=== PATIENT | female | born 1975 | race Caucasian/White ===

== ENCOUNTER 2018-09-19 16:33 | Emergency (ER) | payer OTHER, MEDICAID, SELFPAY ==
[2018-09-19 16:45] VITALS: BP 139/92; PULSE 96; RESP 16; TEMP 37; O2SAT 97; BMI 42.3
[2018-09-19] MEDS: KETOROLAC 60 MG/2 ML VIAL 30 MG IM (17:21)
--- NOTE | 2018-09-19 17:21 | ED_ITS ---
HPI - Neck Pain/Injury <JAIME Yanes - Last Filed: 09/19/18 21:40> General Chief Complaint: Neck Pain/Injury Stated Complaint: neck pain today Time Seen by Provider: 09/19/18 16:56 Source: patient Mode of arrival: ambulatory Limitations: no limitations History of Present Illness HPI Narrative: 43-year-old female with a history of TMJ and cervical bone spurs, presents emergency department complaining neck pain starting today. States she has had worsening. Pain because she has been grinding her teeth the past few days and she has been anxious, but while driving in the car today she experienced sharp neck pain to lateral sides of neck bilaterally. States pain is constant 7/10 and is worse with movement and palpation, better with heat and rest. Patient denies dizziness, headache, syncope, chest pain, vision changes, shortness of breath, abdominal pain, nausea, vomiting, diarrhea, or swelling in her legs. Patient also denies trauma to the area. MD complaint: neck pain Onset (ago): minute(s) Place: other Severity: moderate Severity scale (1-10): 7 Quality: sharp Duration: constant Relieving factors: heat therapy Exacerbating factors: movement of neck Associated symptoms: none Treatments prior to arrival: none Related Data Previous Rx's Medication Instructions Recorded diazepam [Valium] 5 mg PO BID PRN #10 tab 09/19/18 Review of Systems <JAIME Yanes - Last Filed: 09/19/18 21:40> Review of Systems REVIEW OF SYSTEMS: GENERAL: Denies fever or chills. HENT: No head trauma, hearing loss or sore throat. EYES: No loss of vision, double vision, eye pain, or irritation. CARDIOVASCULAR: No chest pain or syncope. RESPIRATORY: No shortness of breath or cough. GASTROINTESTINAL: No nausea, vomiting, diarrhea, or constipation. GENITOURINARY: No flank pain or dysuria. MUSCULOSKELETAL: See HPI, complaints of neck pain INTEGUMENTARY: No rash, lesions, or pruritus. NEURO: No numbness, tingling, memory loss, or confusion. PSYCH: No behavior or mood changes. PFSH <JAIME Yanes - Last Filed: 09/19/18 21:40> Medical History TMJ arthralgia (Acute) Social History Smoking Status: Current every day smoker Social History Smoking Status: Current every day smoker Exam <JAIME Yanes - Last Filed: 09/19/18 21:40> Initial Vital Signs Initial Vital Signs: Vital Signs Temperature 98.6 F 09/19/18 16:45 Pulse Rate 96 H 09/19/18 16:45 Respiratory Rate 16 09/19/18 16:45 Blood Pressure 139/92 H 09/19/18 16:45 Pulse Oximetry 97 09/19/18 16:45 PHYSICAL EXAMINATION: GENERAL: Well groomed, alert, and cooperative Answers questions promptly and appropriately. Patient tearful during visit. Vital signs noted. HENT: Normocephalic, atraumatic. EYES: PERRLA, EOMIs, conjunctiva pink, sclera white, no periorbital swelling. NECK: Limited range or motion due to pain, range of motion increased after administration of medications. Tenderness to palpation of the sternocleidomastoid muscles bilaterally, pain was also elicited with cortisone rotation of head. No bruising or erythema noted. No spinal tenderness along neck. No pain on the base of the skull with palpation. No nuchal rigidity. CHEST: Normal to inspection and without deformities. CARDIOVASCULAR: S1 and S2 sounds normal. Regular rate and rhythm, no murmurs, clicks, or bruits. RESPIRATORY: Normal respiratory rate, trachea midline, airway patent. No stridor, nasal flaring or accessory muscle use. Lungs are clear in all ross without wheeze, rhonchi, or crackles. MUSCULOSKELETAL: Normal gait and coordination. Equal tone and mass bilaterally. No spinal tenderness or deformities. EXTREMITIES: CMS intact. Moves all extremities. SKIN: Warm, dry, soft, appropriate color for ethnicity. No lesions, rashes, or wounds. NEURO: Alert and Oriented X 3. Good coordination. No ataxia, or sensory deficits, or cognitive issues. PSYCH: Appropriate affect and mood. <Hilario Zacarias DO - Last Filed: 09/20/18 20:17> Initial Vital Signs Initial Vital Signs: Vital Signs Temperature 98.6 F 09/19/18 16:45 Pulse Rate 96 H 09/19/18 16:45 Respiratory Rate 16 09/19/18 16:45 Blood Pressure 139/92 H 09/19/18 16:45 Pulse Oximetry 97 09/19/18 16:45 Scores <JAIME Yanes - Last Filed: 09/19/18 21:40> Nexus Score for C-Spine Focal Neurologic deficit present: No Midline spinal tenderness present: No Altered level of conciousness present: No Intoxication present: No Distracting Injury Present: No Nexus Criteria for C-spine: 0 Course <JAIME Yanes - Last Filed: 09/19/18 21:40> Course Narrative: Patient's pain slightly decreased with administration of Toradol and Valium, however patient stated that her pain is not 100% gone. Discussed with patient that neck spasms may take a while to resolve and I will send her home medications. Encouraged patient to follow up with primary care provider for possible PT and massage therapy, as well as further testing if symptoms persist. Orders Ordered: Discontinued Medications Diazepam (Valium) 5 mg PO NOW ONE Stop: 09/19/18 17:17 Last Admin: 09/19/18 17:22 Dose: 5 mg Ketorolac Tromethamine (Toradol) 30 mg IM NOW ONE Stop: 09/19/18 17:17 Last Admin: 09/19/18 17:21 Dose: 30 mg Consultations Consultation #1: Patient discussed with Dr. Zacarias Vital Signs - 8 hr 09/19/18 16:45 09/19/18 17:49 09/19/18 18:56 Temperature 98.6 F Pulse Rate 96 H 77 88 Respiratory Rate 16 Blood Pressure 139/92 H 122/83 Blood Pressure [Left Arm] 113/82 Pulse Oximetry 97 99 97 <Hilario Zacarias DO - Last Filed: 09/20/18 20:17> Orders Ordered: Discontinued Medications Diazepam (Valium) 5 mg PO NOW ONE Stop: 09/19/18 17:17 Last Admin: 09/19/18 17:22 Dose: 5 mg Ketorolac Tromethamine (Toradol) 30 mg IM NOW ONE Stop: 09/19/18 17:17 Last Admin: 09/19/18 17:21 Dose: 30 mg Vital Signs - 8 hr 09/19/18 16:45 09/19/18 17:49 09/19/18 18:56 Temperature 98.6 F Pulse Rate 96 H 77 88 Respiratory Rate 16 Blood Pressure 139/92 H 122/83 Blood Pressure [Left Arm] 113/82 Pulse Oximetry 97 99 97 MDM - Neck Pain/Injury <Rachel JAIME Gama - Last Filed: 09/19/18 21:40> [facility] Narrative Medical decision making narrative: I suspect patient's symptoms are caused by muscle spasm due to exam and and personal history. Low suspicion of acute eligio nary syndrome due to reproducible pain with palpation and movement, no other symptoms such as dizziness, shortness of breath or chest pressure, and history of TMJ and cervical bone spurs, as well as partial resolution of symptoms with ketorolac and Valium. Low suspicion for meningitis due to lack of fever, headache, vision changes, and history of illness as well as nuchal rigidity. Discharge Plan Departure Patient Disposition: Home Clinical Impression: Muscle spasms of neck, Strain of neck muscle Discharge Date/Time: 09/19/18 18:56 Interventions: ED Discharge Assessment Last Done: 09/19/18 18:56 Instructions: DI for Neck Pain, DI for Muscle Spasm Activity Restrictions/Additional Instructions: Thank you for entrusting me with your care today. As discussed, you're neck pain is most likely due to muscle spasm. You have been prescribed a muscle relaxer. Please follow up with her primary care provider to discuss further testing if needed and or physical therapy. If you develop vision loss or double vision, chest pain, shortness of breath, or facial drooping please return to the emergency department. Prescriptions: New diazepam [Valium] 5 mg tablet 5 mg PO BID PRN (Reason: Neck spasms) Qty: 10 RF: 0 <Hilario Zacarias DO - Last Filed: 09/20/18 20:17> [facility] ED Attending Zee Attestation: I was available for consultation during this patient's emergency department encounter
[2018-09-19] MEDS: diazePAM 5 MG TABLET PO (17:22)
[2018-09-19 17:49] VITALS: BP 113/82; PULSE 77; O2SAT 99
[2018-09-19 18:56] VITALS: BP 122/83; PULSE 88; O2SAT 97
== END 2018-09-19 18:56 | disposition home or self-care (01) ==
PROVIDERS: Emergency Provider Nurse Practitioner
DX: M62.838 Other muscle spasm (principal); S16.1XXA Strain of muscle, fascia and tendon at neck level, initial encounter
CPT/HCPCS: 96372; 99282; 99283; J1885

== ENCOUNTER 2019-12-16 10:50 | Emergency (ER) | payer OTHER, MEDICAID, SELFPAY ==
[2019-12-16 11:00] VITALS: BP 145/92; PULSE 101; RESP 18; TEMP 36.7; O2SAT 98; BMI 38.0
--- NOTE | 2019-12-16 11:32 | PC.NURSE ---
Small abcess L groin, white soft center surrounded by reddened skin. Tender to touch. 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 Pt has taken one aspirin today for pain and has improved pain with warm compresses. Has also attempted using Vicks on site. Pt states she took 2 diflucan this week for a yest infection, also on insulin, jiardiance, effexor and lisinopril for HTN.
[2019-12-16] MEDS: KETOROLAC 60 MG/2 ML VIAL 30 MG IM (11:55)
[2019-12-16] MEDS: hydrOXYzine pamoate 25 MG CAPSULE 50 MG PO (11:55)
--- NOTE | 2019-12-16 12:06 | ED_ITS ---
HPI - Skin/Abscess/Foreign Bdy <ED Felder - Last Filed: 12/16/19 16:02> General Chief complaint: Skin/Abscess/Foreign Body Stated complaint: Needs to have an abscess drained Time Seen by Provider: 12/16/19 11:12 Source: patient and family Mode of arrival: Ambulatory Limitations: no limitations History of Present Illness HPI narrative: The patient is a 44-year-old female nonsmoker with history of type 2 diabetes who presents with her for chief complaint of an abscess on the left side of her groin. She states she noticed it 4 days ago, has been using warm packs and is increasing in size. She states she has a history of abscesses, denies any IV drug use but does state she has a history of diabetes. She does state she has a remote history of nec fasc. She denies any fevers nausea vomiting or diarrhea. She denies any signs of systemic illness such as muscle aches or chills. She does note that her abscess is no longer red, but it was earlier today. Related Data Previous Rx's Medication Instructions Recorded diazepam [Valium] 5 mg PO BID PRN #10 tab 09/19/18 cephalexin 500 mg PO TID #30 cap 12/16/19 sulfamethoxazole-trimethoprim 1 tab PO BID #14 tab 12/16/19 Review of Systems <ED Felder - Last Filed: 12/16/19 16:02> Review of Systems Narrative: GENERAL: Denies chills, fatigue, malaise, fever, sweats. HEENT: Denies sinus pain, ear pain, sore throat, difficulty swallowing, dizziness. RESPIRATORY: Denies dyspnea, cough, wheezing, hemoptysis, sputum. CARDIOVASCULAR: Denies chest pain, palpitations, orthopnea, edema, GASTROINTESTINAL: Denies nausea, vomiting, abdominal pain, diarrhea, constipation, melena. : Denies dysuria, frequency, incontinence, hematuria, urinary retention. MUSCULOSKELETAL: denies weakness, joint pain, or bony pain SKIN: See HPI NEUROLOGIC: Denies weakness, headache, numbness, change in speech, confusion, seizures, incoordination. PSYCHIATRIC: No concerning psychosocial issues. 12 point review of systems is negative except for those stated above Patient History <ED Felder - Last Filed: 12/16/19 16:02> Medical History (Updated 12/16/19 @ 12:44 by AWILDA Felder-SOUMYA) TMJ arthralgia (Acute) Social History Smoking Status: Current every day smoker Smoking Status: Current every day smoker Substance Use Type: does not use Exam <ED Felder - Last Filed: 12/16/19 16:02> Narrative Exam Narrative: GENERAL: This is a well-nourished, well-developed patient, very restless, anxious. HEAD: Atraumatic. Normocephalic. No temporal or scalp tenderness. EYES: Pupils equal round and reactive. Extraocular motions intact. No scleral icterus. No injection or drainage. ENT: Nose without bleeding, purulent drainage or septal hematoma. Wearing a mask. Airway patent. NECK: Trachea midline. No JVD or lymphadenopathy. Supple, nontender, no meningeal signs. CARDIOVASCULAR: Regular rate and RESPIRATORY: Clear to auscultation. Breath sounds equal bilaterally. No wheezes, rales, or rhonchi. No cough. No increased respiratory effort. No accessory muscle use. GASTROINTESTINAL: Abdomen soft, non-tender, nondistended. No hepato- splenomegaly, or palpable masses. No guarding. EXTREMITIES: No clubbing, cyanosis, or edema. No joint tenderness, effusion, or edema noted. Very restless, using all extremities equally, kicking throughout exam. BACK: Nontender without deformity or crepitance. No flank tenderness. NEURO: AOx3. SKIN: 2 cm palpable mass in left side inguinal fold with 2 mm pustule on top. No overlying erythema. Very hard and tender to palpation. Initial Vital Signs Initial Vital Signs: Vital Signs Temperature 98.0 F 12/16/19 11:00 Pulse Rate 101 H 12/16/19 11:00 Respiratory Rate 18 12/16/19 11:00 Blood Pressure 145/92 H 12/16/19 11:00 Pulse Oximetry 98 12/16/19 11:00 <Nnamdi Guerra DO - Last Filed: 12/16/19 17:31> Initial Vital Signs Initial Vital Signs: Vital Signs Temperature 98.0 F 12/16/19 11:00 Pulse Rate 101 H 12/16/19 11:00 Respiratory Rate 18 12/16/19 11:00 Blood Pressure 145/92 H 12/16/19 11:00 Pulse Oximetry 98 12/16/19 11:00 Procedures <ED Felder - Last Filed: 12/16/19 16:02> Abscess I/D I&D #1: Site: abdomen Side (if applicable): left Local Anesthetic: lidocaine 1% and with bicarb Amount of anesthesia used (mL): 4 Technique: needle aspiration Amount of fluid expressed (mL): 2 Irrigation: No Course <ED Felder - Last Filed: 12/16/19 16:02> Orders Ordered: ED Orders 12/16/19 12:40 Wound Culture and Gram Stain Stat Discontinued Medications Hydroxyzine Pamoate (Vistaril) 50 mg PO NOW ONE Stop: 12/16/19 11:50 Last Admin: 12/16/19 11:55 Dose: 50 mg Documented by: LMISQUITTFannie Ketorolac Tromethamine (Toradol) 30 mg IM NOW ONE Stop: 12/16/19 11:41 Last Admin: 12/16/19 11:55 Dose: 30 mg Documented by: LMISQUITTFannie Lidocaine/Sodium Bicarbonate (Buffered Lidocaine 10 Ml Syr) 10 ml INJ NOW ONE Stop: 12/16/19 11:41 Last Admin: 12/16/19 12:41 Dose: 10 ml Documented by: ASTRID Vital Signs Vital signs: Vital Signs - 8 hr 12/16/19 11:00 12/16/19 12:53 Temperature 98.0 F Pulse Rate 101 H 94 H Respiratory Rate 18 16 Blood Pressure 145/92 H 138/67 Pulse Oximetry 98 99 <Nnamdi Guerra DO - Last Filed: 12/16/19 17:31> Orders Ordered: ED Orders 12/16/19 12:40 Wound Culture and Gram Stain Stat Discontinued Medications Hydroxyzine Pamoate (Vistaril) 50 mg PO NOW ONE Stop: 12/16/19 11:50 Last Admin: 12/16/19 11:55 Dose: 50 mg Documented by: LMISQUITTA Ketorolac Tromethamine (Toradol) 30 mg IM NOW ONE Stop: 12/16/19 11:41 Last Admin: 12/16/19 11:55 Dose: 30 mg Documented by: LMISQUITTA Lidocaine/Sodium Bicarbonate (Buffered Lidocaine 10 Ml Syr) 10 ml INJ NOW ONE Stop: 12/16/19 11:41 Last Admin: 12/16/19 12:41 Dose: 10 ml Documented by: ASTRID Vital Signs Vital signs: Vital Signs - 8 hr 12/16/19 11:00 12/16/19 12:53 Temperature 98.0 F Pulse Rate 101 H 94 H Respiratory Rate 18 16 Blood Pressure 145/92 H 138/67 Pulse Oximetry 98 99 MDM - Skin/Abscess/Foreign Bdy <AWILDA Felder-BC - Last Filed: 12/16/19 16:02> Differential Diagnosis Differential diagnosis: Likely abscess of skin or subcutaneous tissue MDM Narrative Medical decision making narrative: The patient is a 44-year-old female who presents with a chief complaint of an abscess in her left groin. She has no signs of systemic illness, is afebrile denies nausea vomiting diarrhea etcetera. Exam is overall benign other than a small abscess with no overlying erythema. She was given angiolytics prior to procedure. The patient was difficult to I and D as she was very restless, kicking and persisted in kicking throughout the attempted procedure. Staff safety was taken into consideration given sharps being used, especially given that patient persisted and kicking and moving throughout the attempted procedure. Wound culture was taken. I placed her on Keflex and Bactrim given her history and history of diabetes. Discussed monitoring for signs of systemic illness and come back to the ER for any acute concerns. Encouraged follow-up with primary care provider in the next few days. Patient has no questions or concerns upon discharge and states understanding return precautions as well as follow-up care. Discharge Plan Departure Patient Disposition: Home Clinical Impression: Abscess of skin or subcutaneous tissue Qualifiers: Site of cutaneous abscess: trunk Site of cutaneous abscess of trunk: groin Qualified Code(s): L02.214 - Cutaneous abscess of groin Discharge Date/Time: 12/16/19 12:54 Instructions: DI for Skin Abscess, DI for Intra-Abdominal Abscess Activity Restrictions/Additional Instructions: Thank you for trusting us with your care today. [facility] [place]. Please take this with probiotic or yogurt to help prevent antibiotic associated diarrhea. As discussed, please follow-up with primary care provider in the next few days. Please come back to the emergency department or be seen in your closest emergency department for any acute concerns such as fever, inability keep down fluids, extending redness etcetera. Prescriptions: New cephalexin 500 mg capsule 500 mg PO TID Qty: 30 RF: 0 sulfamethoxazole-trimethoprim 800-160 mg tablet 1 tab PO BID Qty: 14 RF: 0 No Action diazepam [Valium] 5 mg tablet 5 mg PO BID PRN (Reason: Neck spasms) Qty: 10 RF: 0 <Nnamdi Guerra DO - Last Filed: 12/16/19 17:31> [facility] ED Attending Cosignature Attestation: I was immediately available in the department for consultation. This documentation has been reviewed and I agree with assessment and plan. Supervised by Nnamdi Guerra DO
[2019-12-16] MEDS: LIDO 1%/SOD BICARB 8.4% (10ML) 10 ML SYRINGE INJ (12:41)
[2019-12-16 12:53] VITALS: BP 138/67; PULSE 94; RESP 16; O2SAT 99
== END 2019-12-16 12:54 | disposition home or self-care (01) ==
PROVIDERS: Emergency Provider Nurse Practitioner Family
DX: L02.214 Cutaneous abscess of groin (principal)
CPT/HCPCS: 10060; 87070; 87075; 87077; 87186; 87205; 96372; 99283; 99284; J1885